=== PATIENT | male | born 1935 | race Caucasian/White ===

== ENCOUNTER 2017-03-04 05:31 | Inpatient (IN) | payer MEDICARE, OTHER ==
[2017-03-04] VITALS (45 sets, daily range): BP systolic 82–116; BP diastolic 40–59
[~2017-03-04] VITALS: Ht 170.2 cm; Wt 90.7 kg
--- NOTE | 2017-03-04 05:49 | NUR ---
81 Y/O MALE PLACED IN BED 1. R/O SEPSIS. PT HOT TO TPOUCH. RECTAL TEMP 103. HEART RATE 137. ALTERED MENTAL STAUS. RESPONDS TO PAIN FUL STIMULI. LETHARGIC. HYPERTENSIVE.
--- NOTE | 2017-03-04 05:52 | NUR ---
CODE SEPSIS PAGED.
[2017-03-04] MEDS ORDERED: ACETAMINOPHEN 650 MG/SUPP.RECT RC ONE ×2 (05:57→06:00)
[2017-03-04] MEDS ORDERED: IV NS 0.9% 1,000 ML BAG IV ONE ×4 (06:00→10:00)
--- NOTE | 2017-03-04 06:14 | NUR ---
PT IS ALERT AND ORIENTED FOR THE MOST PART. PT SEEN BY . GABRIEL PLACED IN PT. PT HAS HEMITURIA. PT HAS PROSTATE ISSUES, POSSIBLY PROSTATE CA. IVF CONTINUE TO RUN. RECTAL TYLENOL GIVEN. BLOOD DRAWN AND SENT.
--- NOTE | 2017-03-04 06:22 | NUR ---
PT TAKEN TO CT.
[2017-03-04 06:29] LABS: EOSINOPHILS % (AUTO) 0.4 % (0.0-6.0); HEMATOCRIT 28 % (39-51); LYMPHOCYTES # (AUTO) 0.7 /CMM (0.8-4.8); LYMPHOCYTES % (AUTO) 8.9 % (20.0-44.0); MEAN CORPUSCULAR HEMOGLOBIN 25 PG (26.0-33.0); MEAN CORPUSCULAR HGB CONC 32 g/dl (31.0-36.0); MEAN CORPUSCULAR VOLUME 78 fL (80-96); MONOCYTES % (AUTO) 0.2 % (2.0-12.0); NEUTROPHILS # (AUTO) 7.5 /CMM (1.8-8.9); NEUTROPHILS % (AUTO) 90.5 % (43.0-81.0); RDW COEFFICIENT OF VARIATION 23.2 (11.5-15.0); RED BLOOD CELL COUNT(AUTO) 3.59 MIL/uL (4.5-6.0); WHITE BLOOD COUNT (AUTO) 8.3 K/uL (4.3-11.0)
[2017-03-04] MEDS ORDERED: PIPERACILLIN /TAZOBACTAM 3.375 G in IV D5W 50 ML IV ONE (06:30)
[2017-03-04] MEDS ORDERED: VANCOMYCIN 1 GM in IV D5W 250 ML IV ONE ×2 (06:30→10:00)
--- NOTE | 2017-03-04 06:32 | NUR ---
PT BACK FROM CT.
[2017-03-04 06:36] LABS: CALCIUM, SERUM 6.4 mg/dL (8.5-10.1); CARBON DIOXIDE 17 mmol/L (21-32); CHLORIDE 95 mmol/L (98-107); CREATININE 1.4 mg/dL (0.6-1.3); GLUCOSE 83 mg/dL (74-106); SODIUM SERUM 130 mmol/L (136-145); UREA NITROGEN, BLOOD 51 mg/dL (7-18)
[2017-03-04] MEDS ORDERED: PIPERACILLIN /TAZOBACTAM 3.375 G VIAL IV ONE (06:36)
--- NOTE | 2017-03-04 06:43 | NUR ---
IV ANTIBIOTICS STARTED.
[2017-03-04 06:44] LABS: TROPONIN I < 0.017 ng/mL (0.00-0.056)
[2017-03-04 06:46] LABS: INR 1.6 (0.87-1.13); PLATELET COUNT (AUTO) 216 /CMM (150-450); PROTHROMBIN TIME 16.7 SECS (9.5-12.7)
--- NOTE | 2017-03-04 06:46 | NUR ---
BLOOD PRESSURE LOW. MD AWARE.
[2017-03-04 06:51] LABS: ALANINE AMINOTRANSFERASE 39 U/L (12-78); ALKALINE PHOSPHATASE 1069 U/L (46-116); ASPARTATE AMINOTRANSFERASE 234 U/L (15-37); B-TYPE NATRIURETIC PEPTIDE 1248 PG/ML (0-125); BILIRUBIN,DIRECT 0.9 mg/dL (0.0-0.2); BILIRUBIN,TOTAL 1.3 mg/dL (0.2-1.0); TOTAL PROTEIN, SERUM 6.4 g/dL (6.4-8.2)
[2017-03-04 06:52] LABS: ALBUMIN 1.4 g/dL (3.4-5.0)
[2017-03-04] MEDS ORDERED: DEXTROSE 50%-WATER 50 ML DISP.SYRIN ONE (06:52)
[2017-03-04] MEDS ORDERED: FUROSEMIDE 20 MG/2 ML VIAL ONE (06:52)
[2017-03-04] MEDS ORDERED: CALCIUM CHLORIDE 1,000 MG/10 ML DISP.SYRIN ONE (06:52)
[2017-03-04] MEDS ORDERED: VANCOMYCIN 1 GM VIAL ONE (06:52)
[2017-03-04] MEDS ORDERED: SODIUM BICARBONATE SYR 50 MEQ/50 ML DISP.SYRIN ONE (06:52)
[2017-03-04] MEDS ORDERED: SODIUM POLYSTYRENE SULFONATE 15 G/60 ML BOTTLE PO ONE (07:00)
[2017-03-04] MEDS ORDERED: FUROSEMIDE 40 MG/4 ML VIAL IV ONE (07:00)
[2017-03-04] MEDS ORDERED: SODIUM BICARBONATE SYR 50 MEQ/50 ML DISP.SYRIN IV ONE (07:00)
[2017-03-04] MEDS ORDERED: DEXTROSE 50%-WATER 50 ML DISP.SYRIN IV ONE (07:00)
[2017-03-04] MEDS ORDERED: CALCIUM CHLORIDE 1,000 MG/10 ML DISP.SYRIN IV ONE (07:00)
[2017-03-04] MEDS ORDERED: ALBUTEROL FS 2.5 MG/3 ML VIAL.NEB NEB ONE (07:00)
[2017-03-04] MEDS ORDERED: INSULIN REGULAR, HUMAN 100 UNIT/ML 10 ML VIAL IV ONE (07:00)
[2017-03-04 07:08] LABS: BAND % (MANUAL) 13 % (0.0-5.0); LYMPHOCYTES % (MANUAL) 9 % (16-48); METAMYELOCYTES % 2 % (0-0); MONOCYTES % (MANUAL) 1 % (0-11.0); NEUTROPHILS % (MANUAL) 75 (42-76)
--- NOTE | 2017-03-04 07:16 | NUR ---
CALLED LAB FOR DYE REEL OPERATOR
--- NOTE | 2017-03-04 07:17 | NUR ---
CT OF HEAD RESULTS INDICATE POSSIBLE BLEED, AWARE
[2017-03-04] MEDS ORDERED: ALBUTEROL FS 2.5 MG/3 ML VIAL.NEB ONE ×2 (07:25→07:26)
[2017-03-04] MEDS ORDERED: ALBUTEROL FS 2.5 MG/0.5 ML VIAL.NEB ONE (07:26)
[2017-03-04] MEDS ORDERED: SODIUM POLYSTYRENE SULFONATE 15 G/60 ML BOTTLE ONE (07:42)
[2017-03-04] MEDS ORDERED: oxyCODONE/APAP (5/325 MG) 1 UDTAB TABLET ONE (07:42)
--- NOTE | 2017-03-04 07:53 | NUR ---
DR. OROZCO (RADIOLOGY) SPEAKING TO DR. VILLATORO REGARDING CT RESULTS.
--- NOTE | 2017-03-04 07:57 | NUR ---
DR. VILLATORO SPEAKING TO DR. WADE REGARDING RESULTS.
[2017-03-04] MEDS ORDERED: oxyCODONE/APAP (5/325 MG) 1 UDTAB TABLET PO ONE (08:00)
[2017-03-04] MEDS ORDERED: FERR-58 PO (08:10)
[2017-03-04] MEDS ORDERED: ZOLP5TAB2 PO (08:10)
[2017-03-04] MEDS ORDERED: BISA10SU8 RC (08:10)
[2017-03-04] MEDS ORDERED: MULT-213 PO (08:10)
[2017-03-04] MEDS ORDERED: LIDO700A TP (08:10)
[2017-03-04] MEDS ORDERED: ALEN70TA45 PO (08:10)
[2017-03-04] MEDS ORDERED: ASCO500T9 PO (08:10)
[2017-03-04] MEDS ORDERED: NA P133E RC (08:10)
[2017-03-04] MEDS ORDERED: OXYC-128 PO (08:10)
[2017-03-04] MEDS ORDERED: BICA50TA2 PO (08:10)
[2017-03-04] MEDS ORDERED: MAGN400O6 PO (08:10)
[2017-03-04] MEDS ORDERED: GABA-532 PO (08:10)
[2017-03-04 08:12] LABS: APPEARANCE,URINE CLOUDY (CLEAR); BILIRUBIN,URINE 3+ (NEGATIVE); BLOOD, URINE 3+ Ery/uL (NEGATIVE); COLOR,URINE AMBER (YELLOW); KETONES,URINE 1+ (NEGATIVE); LEUKOCYTE ESTERASE ,URINE 2+ (NEGATIVE); NITRITE, URINE POSITIVE (NEGATIVE); PH,URINE 6.5 (5.0-8.0); PROTEIN,URINE 3+ mg/dl (NEGATIVE); UGLUCOSE TRACE mg/dL (NEGATIVE); UROBILINOGEN,URINE >=8.0 EU/dL (0.2)
--- NOTE | 2017-03-04 08:20 | NUR ---
MACHINE SEWER AT FOR BLOOD DRAW.
[2017-03-04 08:22] LABS: RBC,URINE TOO NUMEROUS TO COUN /HPF (0-2); SQUAMOUS EPITHELIAL CELL,UR Rare /HPF (None Seen)
[2017-03-04 08:23] LABS: BACTERIA,URINE Moderate /HPF (None Seen)
--- NOTE | 2017-03-04 08:40 | NUR ---
AZEEM GILL RN, CALLED FOR ICU BED AND PICC LINE NURSE
[2017-03-04] MEDS ORDERED: CT SWABBABLE VALVE TRANS SET 1 EA INFUS.SET MC ONE (08:50)
[2017-03-04] MEDS ORDERED: IOHEXOL-350 100 ML VIAL IV ONE (08:50)
[2017-03-04] MEDS ORDERED: IV NS 0.45% 500 ML IV ONE (08:51)
[2017-03-04] MEDS ORDERED: NOREPINEPHRINE 8 MG in IV D5W 500 ML IV ONE (09:00)
--- NOTE | 2017-03-04 09:55 | NUR ---
REPORT GIVEN TO SUNITHA STARK FOR ICU 257.
[2017-03-04] MEDS ORDERED: NOREPINEPHRINE 8 MG in IV D5W 500 ML IV PRN ×2 (10:00→19:00)
[2017-03-04] MEDS ORDERED: ACETAMINOPHEN 325 MG TABLET PO PRN (10:00)
[2017-03-04] MEDS ORDERED: ONDANSETRON HCL/PF 4 MG/2 ML VIAL IVP PRN (10:00)
--- NOTE | 2017-03-04 10:00 | NUR ---
SENSOR TECHNICIAN RECEIVED PATIENT FROM [facility] [place] ALERT AWAKE X 3 COMPLAINTS OF PAIN, PAIN MEDICATION WILL BE GIVEN STARTED IVF TO RUN FOR 100 ML/HR MONITORED CLOSELY WOUND CULTURE ORDERED KAYEXALTE GIVEN, SMALL BM NOTED CLOUDY, ROSE URINE OUTPUT NOTED Addendum: 03/04/17 at 1919 by JUAN JOSE SIFUENTES RN LEVOPHED STARTED AT 12NOON
[2017-03-04] MEDS ORDERED: SODIUM POLYSTYRENE SULFONATE 15 G/60 ML BOTTLE RC ONE (10:15)
[2017-03-04 11:39] LABS: ABG BASE EXCESS -4.9 mmol/L; ABG OXYGEN SATURATION 94.7 % (92.0-98.5); ABG PCO2 22.6 mmHg (35.0-45.0); ABG PO2 72.3 mmHg (75.0-100.0); AaDO2 50.4 mmHg; COHb 0.3 % (0.5-1.5); MetHb 0.6 % (0.0-1.5); O2Hb 93.8 % (94.0-97.0); SITE, ABG Right Brachial; VENT MODE, BG ROOM AIR
[2017-03-04] MEDS ORDERED: PIPERACILLIN /TAZOBACTAM 4.5 G in IV D5W 100 ML IV SCH (12:00)
[2017-03-04] MEDS: PANTOPRAZOLE 40 MG VIAL IV SCH (12:27)
[2017-03-04] MEDS: MORPHINE SULFATE INJ 2 MG/ML DISP.SYRIN IV PRN ×2 (12:33→23:51)
[2017-03-04] MEDS: IV NS 0.9% 1,000 ML IV PRN (12:41)
[2017-03-04] MEDS: PIPERACILLIN /TAZOBACTAM 3.375 G in IV D5W 50 ML IV SCH ×3 (12:59→23:50)
[2017-03-04] MEDS ORDERED: FEE PK DOSING 1 MIN EA MC ONE (14:11)
[2017-03-04 18:55] LABS: ALANINE AMINOTRANSFERASE 67 U/L (12-78); ALKALINE PHOSPHATASE 818 U/L (46-116); ASPARTATE AMINOTRANSFERASE 404 U/L (15-37); BILIRUBIN,DIRECT 0.9 mg/dL (0.0-0.2); BILIRUBIN,TOTAL 1.2 mg/dL (0.2-1.0); CALCIUM, SERUM 6.1 mg/dL (8.5-10.1); CARBON DIOXIDE 22 mmol/L (21-32); CHLORIDE 100 mmol/L (98-107); GLUCOSE 117 mg/dL (74-106); POTASSIUM 4.1 mmol/L (3.5-5.1); SODIUM SERUM 133 mmol/L (136-145); TOTAL PROTEIN, SERUM 5.1 g/dL (6.4-8.2); UREA NITROGEN, BLOOD 46 mg/dL (7-18)
[2017-03-04 19:00] LABS: ALBUMIN 1.1 g/dL (3.4-5.0)
[2017-03-04] MEDS: NOREPINEPHRINE 8 MG in IV D5W 500 ML IV PRN (19:38)
--- NOTE | 2017-03-04 20:00 | NUR ---
Received patient alert & oriented. VS stable.SR.NPO status.IVF infusing & Levophed drip @ 18 mcg/min for BP support and will titrate accordingly. Both iv's infusing via ALEXANDRO PICC line.Site intact.FC to gravity with cloudy sheila urine.Patient turned and repositioned offloading pressure points.Patient with pressure injury dressing C./D/I.Grimaces and moans when turn but refused pain medication at this time.Continue monitoring.
[2017-03-04] MEDS: VANCOMYCIN 500 MG in IV D5W 100 ML IV SCH (20:07)
--- NOTE | 2017-03-04 21:30 | NUR ---
Specimen for MRSA nares collected and sent to lab.
[2017-03-05] VITALS (90 sets, daily range): BP systolic 73–131; BP diastolic 31–89
[2017-03-05] MEDS: IV NS 0.9% 1,000 ML IV PRN ×2 (00:12→13:18)
--- NOTE | 2017-03-05 00:25 | NUR ---
At 2351 PRN Morpine administered for back pain with relief.Turned and repositioned.VS stable.
[2017-03-05] MEDS: NOREPINEPHRINE 8 MG in IV D5W 500 ML IV PRN (02:13)
--- NOTE | 2017-03-05 04:00 | NUR ---
Patient doze off and on awake at this time.VS stable.Bed bath done [place] linens changed. Oral care done.Right hip and mid back pressure injury dressing changed with minimal serosanguineous drainage.Turned and repositioned to comfort offloading pressure points. Patient moans only when arms and legs moved on turning.Refused pain medication. Continue monitoring.
[2017-03-05 04:31] LABS: HEMATOCRIT 25 % (39-51); HEMOGLOBIN 8.1 g/dL (13.5-17.5); MEAN CORPUSCULAR HEMOGLOBIN 26 PG (26.0-33.0); MEAN CORPUSCULAR HGB CONC 33 g/dl (31.0-36.0); MEAN CORPUSCULAR VOLUME 77 fL (80-96); PLATELET COUNT (AUTO) 178 /CMM (150-450); RDW COEFFICIENT OF VARIATION 23.8 (11.5-15.0); RED BLOOD CELL COUNT(AUTO) 3.18 MIL/uL (4.5-6.0)
[2017-03-05 04:36] LABS: ALANINE AMINOTRANSFERASE 68 U/L (12-78); ALKALINE PHOSPHATASE 786 U/L (46-116); ASPARTATE AMINOTRANSFERASE 506 U/L (15-37); BILIRUBIN,TOTAL 1.1 mg/dL (0.2-1.0); CARBON DIOXIDE 19 mmol/L (21-32); CHLORIDE 100 mmol/L (98-107); CREATININE 0.8 mg/dL (0.6-1.3); GLUCOSE 104 mg/dL (74-106); SODIUM SERUM 132 mmol/L (136-145); TOTAL PROTEIN, SERUM 5.2 g/dL (6.4-8.2); UREA NITROGEN, BLOOD 40 mg/dL (7-18)
[2017-03-05 04:53] LABS: BAND % (MANUAL) 13 % (0.0-5.0); EOSINOPHILS % (MANUAL) 1 % (0-4); LYMPHOCYTES % (MANUAL) 6 % (16-48); METAMYELOCYTES % 1 % (0-0); MONOCYTES % (MANUAL) 1 % (0-11.0); MYELOCYTES % 1 % (0-0); NEUTROPHILS % (MANUAL) 77 (42-76)
[2017-03-05 05:29] LABS: ALBUMIN 1.1 g/dL (3.4-5.0); CALCIUM, SERUM 5.9 mg/dL (8.5-10.1)
[2017-03-05] MEDS: PIPERACILLIN /TAZOBACTAM 3.375 G in IV D5W 50 ML IV SCH ×4 (06:01→23:38)
--- NOTE | 2017-03-05 06:20 | NUR ---
Patient resting appears comfortable.SR.VS stable.All due medications administered.Levophed drip down to 14 mcg/min.Turned and repositioned.AM labs resulted.Calcium 5.9 and Albumin 1.1 will endorsed to AM shift RN to inform MD this morning.
--- NOTE | 2017-03-05 07:30 | NUR ---
WALL INSULATION SPRAYER RECEIVED PATIENT AWAKE ON ROOM AIR SATURATING AT 98% WARM TO TOUCH PAIN NOTED ESPECIALLY WHEN MOVED MAINTAINED ON NPO, MONITORED CLOSELY MAINTAINED ON LEVOPHED TITRATED ACCORDINGLY WITH GABRIEL CATHETER DRAINING TO BAG, STILL ROSE IN APPEARANCE
[2017-03-05] MEDS: PANTOPRAZOLE 40 MG VIAL IV SCH (08:16)
[2017-03-05] MEDS: VANCOMYCIN 500 MG in IV D5W 100 ML IV SCH ×2 (09:17→20:38)
--- NOTE | 2017-03-05 09:53 | NUR ---
MUFFLE OPERATOR SEEN BY DR. VALENZUELA WITH NEW ORDERS MADE AND CARRIED OUT
[2017-03-05] MEDS ORDERED: Z GUARD REMEDY 2 OZ OINT TP PRN (10:30)
[2017-03-05] MEDS: NOREPINEPHRINE 16 MG in IV D5W 500 ML IV PRN (11:11)
[2017-03-05] MEDS: Z GUARD REMEDY 2 OZ OINT TP SCH (11:19)
[2017-03-05] MEDS: CADEXOMER IODINE 40 GM TUBE TP SCH ×2 (11:19→20:44)
[2017-03-05] MEDS: MORPHINE SULFATE INJ 2 MG/ML DISP.SYRIN IV PRN ×2 (11:31→23:39)
[2017-03-05 12:04] LABS: ABG BASE EXCESS -3.8 mmol/L; ABG PCO2 23.2 mmHg (35.0-45.0); ABG PH 7.514 (7.350-7.450); ABG PO2 71.1 mmHg (75.0-100.0); AaDO2 50.8 mmHg; COHb 0.5 % (0.5-1.5); MetHb 0.2 % (0.0-1.5); O2Hb 94.3 % (94.0-97.0); SITE, ABG Right Radial
--- NOTE | 2017-03-05 12:11 | NUR ---
CLAIMS PROCESSOR PATIENT REFUSED TO HAVE CT OF HIS RIGHT HIP
--- NOTE | 2017-03-05 18:38 | NUR ---
SOFTWARE ENGINEERING SUPERVISOR PATIENT REMAINS NPO, AWAITING VANCOMYCIN TROUGH RESULT BEFORE GIVENING VANCOMYCIN IV
--- NOTE | 2017-03-05 20:00 | NUR ---
ALTO SINGER NOTES RECEIVED PT IN BED, AWAKE. A/O X3. ON ROOM AIR, FINA WELL. TELE READS ST AT 102 BPM. NPO AT THIS TIME. GABRIEL CATH IN PLACE, DRAINING WELL TO CLOUDY ROSE URINE. ALEXANDRO PICC IN PLACE, RUNNING LEVOPHED AT 16 MCG/MIN AND NS AT 100 ML/HR. IV SITES AT RAC 18G AND LAC 18G, PATENT, CLEAN AND DRY. PT DENIES PAIN AT THIS TIME. HOB ELEVATED, SIDE RAILS X3. ON KCI MATTRESS. LEMON GLYCERIN SWABS PROVIDED TO WET PT'S DRY MOUTH. TURNED AND REPOSITIONED.
[2017-03-06] VITALS (69 sets, daily range): BP systolic 89–124; BP diastolic 45–102
[2017-03-06] MEDS: IV NS 0.9% 1,000 ML IV PRN ×2 (01:30→14:16)
[2017-03-06] MEDS: MORPHINE SULFATE INJ 2 MG/ML DISP.SYRIN IV PRN ×4 (04:32→22:33)
[2017-03-06] MEDS: NOREPINEPHRINE 16 MG in IV D5W 500 ML IV PRN (04:37)
[2017-03-06 04:46] LABS: CARBON DIOXIDE 20 mmol/L (21-32); CHLORIDE 104 mmol/L (98-107); CREATININE 0.6 mg/dL (0.6-1.3); GLUCOSE 79 mg/dL (74-106); SODIUM SERUM 136 mmol/L (136-145); UREA NITROGEN, BLOOD 22 mg/dL (7-18)
[2017-03-06 04:50] LABS: CALCIUM, SERUM 5.5 mg/dL (8.5-10.1); POTASSIUM 2.5 mmol/L (3.5-5.1)
[2017-03-06 05:20] LABS: HEMATOCRIT 22 % (39-51); HEMOGLOBIN 7.4 g/dL (13.5-17.5); MEAN CORPUSCULAR HEMOGLOBIN 25 PG (26.0-33.0); MEAN CORPUSCULAR HGB CONC 33 g/dl (31.0-36.0); MEAN CORPUSCULAR VOLUME 77 fL (80-96); PLATELET COUNT (AUTO) 157 /CMM (150-450); RDW COEFFICIENT OF VARIATION 24.2 (11.5-15.0); RED BLOOD CELL COUNT(AUTO) 2.92 MIL/uL (4.5-6.0); WHITE BLOOD COUNT (AUTO) 5.8 K/uL (4.3-11.0)
[2017-03-06 05:39] LABS: BAND % (MANUAL) 14 % (0.0-5.0); EOSINOPHILS % (MANUAL) 2 % (0-4); LYMPHOCYTES % (MANUAL) 9 % (16-48); MONOCYTES % (MANUAL) 3 % (0-11.0); NEUTROPHILS % (MANUAL) 72 (42-76)
[2017-03-06] MEDS: PIPERACILLIN /TAZOBACTAM 3.375 G in IV D5W 50 ML IV SCH ×3 (06:13→18:14)
[2017-03-06] MEDS: POTASSIUM CL. PREMIX PERIPHER. 50 ML IV SCH ×10 (07:28→17:49)
[2017-03-06] MEDS: VANCOMYCIN 500 MG in IV D5W 100 ML IV SCH ×2 (07:36→19:59)
--- NOTE | 2017-03-06 07:43 | NUR ---
ICU NOTE PT RECVD AOX3 IN BED EASILY AROUSABLE. ON 10MCG OF LEVOPHED, NS @ 100, AND POSTASSIUM REPLACEMENT STARTED. PM MD ORDERED 40 MEQ AND TOLD RN TO HAVE DAY SHIFT FOLLOW UP IF HE NEEDS MORE REPLACEMENT. CALCIUM WAS ALSO REPORTED BY PM RN TO MD AND HE STATES THAT CALCIUM IS FALSE LOW DUE TO LOW ALBUMIN. PT STILL NPO WILL ASK MD TODAY IF WE CAN START DIET VS KEEP NPO. CT RIGHT HIP ORDERED, WHICH THE PATIENT REFUSED YESTERDAY, I WILL ENCOURAGE HIM TO COMPLY AND PLAN TO PREMEDICATE WITH PAIN MEDICATIONS IF HE WILL ALLOW FOR IT.
[2017-03-06] MEDS: PANTOPRAZOLE 40 MG VIAL IV SCH (08:03)
[2017-03-06] MEDS: CADEXOMER IODINE 40 GM TUBE TP SCH (08:03)
[2017-03-06] MEDS: Z GUARD REMEDY 2 OZ OINT TP SCH (08:03)
--- NOTE | 2017-03-06 09:47 | NUR ---
DR. WADE ON THE UNIT, TO TALK TO THE PATIENT, HE ORDERS 60 MEQ MORE OF POTASSIUM OKAY TO DO IV, INSTEAD OF PO BECAUSE PT WILL NEED TO BE NPO FOR A CT SCAN TODAY. WILL INPUT ORDERS.
[2017-03-06] MEDS ORDERED: POTASSIUM CHLORIDE 20 MEQ TAB.PRT.SR PO ONE (10:00)
--- NOTE | 2017-03-06 11:10 | NUR ---
PT TAKEN DOWN FOR CT. FAIR TOLERATION OF PROCEDURE DUE TO PAIN, BUT PT ACTUALLY DOES NOT WANT PRN MORPHINE, HE STATES HE HAS HAD ENOUGH OF IT SO FAR. SPOKE WITH THE PT'S SISTER THIS MORNING WHO STATES THAT HE PT HAS A BIASED AGAINST PAIN MEDICATIONS HE CALLS THEM "MIND ALTERING" DRUGS AND TRIES TO LIMIT THEM MUCH POSSIBLE.
[2017-03-06] MEDS ORDERED: IOHEXOL-300 100 ML VIAL IV ONE (11:39)
--- NOTE | 2017-03-06 22:10 | NUR ---
ICU/BENCH SCIENTIST FAMILY MEMBERS AT BEDSIDE, SISTERS FROM OUT OF TOWN. PT APPEARED TO RESPOND TO THE FAMILY MEMBERS WELL. THE VISIT WAS ABOUT 30 MINUTES THEN SAID THEY WOULD COME BACH TOMORROW.
--- NOTE | 2017-03-06 22:45 | NUR ---
ICU/ATTENDING PATHOLOGIST PT APPEARED TO BE IN PAIN BY YELLING OUT WITH MOVED, NOTIFIED CHARGE NURSE ABOUT THIS WITH INCREASED HEART RATE TO100'S MORPHINE 2 MG WAS GIVEN IVP. PT DOES NOT TO IN ANY ACUTE RESPIRATORY DISTRESS WILL CONTINUE TO MONITOR THIS PT AND PAIN LEVEL.
[2017-03-07] VITALS (55 sets, daily range): BP systolic 63–115; BP diastolic 34–60
[2017-03-07] MEDS: PIPERACILLIN /TAZOBACTAM 3.375 G in IV D5W 50 ML IV SCH ×3 (00:10→11:28)
[2017-03-07] MEDS: MORPHINE SULFATE INJ 2 MG/ML DISP.SYRIN IV PRN ×5 (02:47→17:29)
[2017-03-07] MEDS: IV NS 0.9% 1,000 ML IV PRN ×2 (02:47→11:28)
--- NOTE | 2017-03-07 03:00 | NUR ---
ICU/INFECTION PREVENTION COORDINATOR PT APPEARED TO BE IN PAIN BY YELLING OUT WITH MOVED, NOTIFIED CHARGE NURSE ABOUT THIS WITH INCREASED HEART RATE TO100'S MORPHINE 2 MG WAS GIVEN IVP. PT DOES NOT TO IN ANY ACUTE RESPIRATORY DISTRESS WILL CONTINUE TO MONITOR THIS PT AND PAIN LEVEL.
--- NOTE | 2017-03-07 04:55 | NUR ---
ICU/ATLASSIAN ADMINISTRATOR PT GIVEN AM CARE, ALONG WITH ORAL CARE. PT TOLERATED THIS WELL. THEN PT WAS TURNED AND REPOSITIONED FOR COMFORT AND CARE. PT NOW APPEARS TO BE RESTING COMFORTABLE.
[2017-03-07 05:24] LABS: CARBON DIOXIDE 18 mmol/L (21-32); CHLORIDE 109 mmol/L (98-107); CREATININE 0.5 mg/dL (0.6-1.3); GLUCOSE 89 mg/dL (74-106); POTASSIUM 3.5 mmol/L (3.5-5.1); SODIUM SERUM 139 mmol/L (136-145); UREA NITROGEN, BLOOD 15 mg/dL (7-18)
[2017-03-07 05:44] LABS: CALCIUM, SERUM 5.6 mg/dL (8.5-10.1)
--- NOTE | 2017-03-07 06:30 | NUR ---
ICU/MEAT CLERK LEVO BAG WAS LOW, NOTICED CHARGE NURSE ABOUT THIS. BLOOD PRESSURE CONTINUES TO BE IN THE 90'S. PT WAS TURNED AND REPOSITIONED FOR COMFORT AND CARE
[2017-03-07] MEDS: NOREPINEPHRINE 16 MG in IV D5W 500 ML IV PRN (06:38)
--- NOTE | 2017-03-07 07:05 | NUR ---
RN INITIAL NOTES RECEIVED PT AWAKE, A/OX2. ON 02 AT 2LPM VIA NC. NO RESPIRATORY DISTRESS NOTED. NO SOB NOTED. NO SIGNS OF PAIN NOTED. HOB ELEVATED. ALEXANDRO PICC IN PLACE. IVF INFUSING. FC IN PLACE. NO HEMATURIA NOTED. BLE ELEVATED. WILL MONITOR.
[2017-03-07] MEDS ORDERED: ERGOCALCIFEROL (VITAMIN D 2) 50,000 UNIT CAPSULE PO SCH (07:30)
[2017-03-07] MEDS: PANTOPRAZOLE 40 MG VIAL IV SCH (08:27)
[2017-03-07] MEDS: VANCOMYCIN 500 MG in IV D5W 100 ML IV SCH (08:27)
[2017-03-07] MEDS: Z GUARD REMEDY 2 OZ OINT TP SCH (08:27)
--- NOTE | 2017-03-07 10:30 | NUR ---
RN NOTES SEEN AND EXAMINED BY DR. WADE. AWARE OF CURRENT LAB VALUES: WBC 5.8, HGB 7.4, HCT 22. NO SIGNS OF BLEEDING NOTED. BUN 15, CREA 0.5, CALCIUM 5.6, ALBUMIN 1.1. ALSO AWARE OF RIGHT HIP CT RESULT. PT AWAKE, A/OX2. ON IVF. WITH POOR PO INTAKE. ON LEVO AT 9MCG/MIN. SBP >90 MMHG. AWAITING FOR ORDER/S. WILL MONITOR.
--- NOTE | 2017-03-07 11:00 | NUR ---
PT CONFUSED WITH METASTATIC CANCER SEEN ON HEAD CT. PT NOT COMPETENT PER DR WADE TO MAKE HIS OWN DECISIONS. BOTH SISTERS AT BEDSIDE. D/W PT'S SISTERS UMER AND JASON WHO EACH STATE THAT THEY ARE THE ONLY FAMILY. SISTER UMER, BOTH AGREE, IS THE DPOA FOR HEALTH CARE ALTHOUGH THERE HAS NEVER BEEN A FORMAL DOCUMENT EXECUTED. ALL CT SCANS AND X/R'S R/VD WITH SISTERS WHO HAVE BEEN AWARE OF DX AND PROGNOSIS "FOR A YEAR". BOTH ASK FOR COMFORT CARE AND TO STOP ALL AGGRESSIVE RX. D/W DR WADE WHO WILL COME IN PERSON TO SPEAK WITH FAMILY. CODE STATUS CHANGED TO COMFORT
[2017-03-07] MEDS ORDERED: HYDROMORPHONE 1 MG/1 ML DISP.SYRIN IV PRN ×2 (11:30→12:00)
--- NOTE | 2017-03-07 11:30 | NUR ---
RN NOTES DR. WADE INSIDE THE ROOM WITH TWO SISTERS. DISCUSSED PLAN OF CARE CONSIDERING HOSPICE. PT IS NOW FOR COMFORT MEASURES ONLY. SISTERS VERBALIZED UNDERSTANDING. MD ORDERED TO STOP ALL MEDS. WILL CONTINUE TO MONITOR.
[2017-03-07] MEDS: LORAZEPAM INJ 2 MG/ML VIAL IV PRN ×4 (12:18→18:22)
[2017-03-07] MEDS ORDERED: MORPHINE SULFATE INJ 2 MG/ML DISP.SYRIN IV PRN (13:00)
--- NOTE | 2017-03-07 18:35 | NUR ---
RN CLOSING NOTES PT ON COMFORT CARE. ON 02 AT 2LPM VIA NC. HOB ELEVATED. NO SIGNS OF PAIN NOTED. PICC LINE IN PLACE. FC IN PLACE. KEPT COMFORTABLE. KEPT CLEAN AND DRY. AWAITING FOR ROOM AVAILABILITY TO BE DOWNGRADED TO MED-SURG. WILL ENDORSE.
--- NOTE | 2017-03-07 21:00 | NUR ---
COAT CHECK ATTENDANT - REC'D PT. OBTUNDED, DOES NOT RESPOND TO VERBAL COMMANDS, NAILBED STIMULUS,NOR DEEP TACTILE/PLANTAR STIMULUS. AFEBRILE. GABRIEL CATH W/LOW UOP. ALL PULSES PALPABLE X 4 EXT. CARLOS RAYA WAS ABLE TO TAKE [place] RING OFF OF LEFT HAND & GAVE IT TO HIS SISTER. HEART MONITOR SHOWS ST/120'S & SBP'S IN THE 60-70'S. PT. IS ON O2/2L/NC. PT. IS NOW COMFORT MEASURES ONLY. PT'S 2 SISTERS ARE AT BS. THEY DISCUSSED THAT WHEN PT. IS , THEY ALREADY MADE ARRANGEMENTS FOR THE [employer] TO PICK HIM UP.
[2017-03-08] VITALS: BP 72/39
[2017-03-08 01:00] VITALS: BP 75/40
[2017-03-08 02:00] VITALS: BP 74/38
[2017-03-08 03:00] VITALS: BP 72/38
[2017-03-08 04:00] VITALS: BP 74/37
[2017-03-08] MEDS: MORPHINE SULFATE INJ 2 MG/ML DISP.SYRIN IV PRN ×3 (04:26→20:05)
[2017-03-08 05:00] VITALS: BP 74/37
--- NOTE | 2017-03-08 05:00 | NUR ---
HRIS COORDINATOR - PT. WAS TRANSFERRED TO #107 W/ACLS PROTOCOL. PT. WAS ADMINISTERED MORPHINE SULFATE 2MG/SLOW IVP AT 04:55 FOR PAIN CONTROL. PT'S RT. HIP WAS PACKED/DRSG CHANGE BEFORE TX. SBP'S REMAIN IN THE 70'S, HR/ST/LOW 100'S TO 120'S. AFEBRILE. TELEPHONE REPORT GIVEN TO BOUBACAR STARK. NO CHANGES TO PREVIOUS ASSESSMENTS. PT'S SISTER CHICO WILL BE PHONED AT 6AM TO COMMUNICATE TRANSFER TO MED SURG. CONT. POC.
--- NOTE | 2017-03-08 05:13 | NUR ---
GALILEA/MS-RN NOTES PATIENT RECEIVED ON A GURNEY ACCOMPANIED BY 2 STAFF,RN, FROM ICU, NOT ALERT, BUT OBTUNDED,, HAVING SHALLOW BREATHING, EYES CLOSED AND CAN BE AWAKEN BY DEEP STIMULUS, SKIN WARM AND NOT MOIST. NOTED RIGHT HAND SWOLLEN/DISCOLORED. REQUIRE COMFORT MEASURES PER FAMILY. ON 2L OXYGEN VIA NC, PALPABLE PULSE ON ALL EXTREMITIES. ON GABRIEL WITH URINE DRAINING YELLOW COLORE. REQUIRE WOUND CARE ON LEFT HIP WITH SEROUS DRAINAGE REQUIRE IODOFORM OACKING FOR DRAINAGE. RIGHT PICC LINE DOUBLE LUMEN, PATENCY CHECK. ON NPO DIET, ON MORPHINE AND ATIVAN MED FOR PAIN AND COMFORT CARE. WILL CONTACT SISTER PER ICU NURSE FOR TRANSFER AND PER SISTER [employer] MADE AWARE.WILL CONTINUE TO MONITOR.
--- NOTE | 2017-03-08 07:55 | NUR ---
MS RN NOTE PT RECEIVED COMFORTABLY SLEEPING ON BED. ON NASAL CANNULA 2L TOLERATING WELL. NO SIGNS OF DISTRESS. RIGHT UPPER ARM PICC LINE RUNNING WELL. SIDE RAILS UP. CALL LIGHT WITHIN REACH. WILL PROVIDE COMFORT MEASURES TO THE PT.
[2017-03-08] MEDS: Z GUARD REMEDY 2 OZ OINT TP SCH (10:33)
--- NOTE | 2017-03-08 13:09 | NUR ---
MS RN NOTE PROVIDED COMFORT MEASURES GIVEN MORPHINE FOR PAIN.
--- NOTE | 2017-03-08 18:47 | NUR ---
MS RN NOTES PROVIDED COMFORT MEASURES TO THE PT. BED BATH WAS DONE. WOUND CARE DONE. WILL ENDORSED TO THE PM NURSE
--- NOTE | 2017-03-08 19:30 | NUR ---
RN NOTES, RECEIVED PATIENT IN BED, WITH EYES OPEN UNABLE TO VERBALIZED NEEDS OR CONCERNS, PATIENT IN COMFORT MEASURES ONLY AND PAIN MANAGEMENT, SISTER AT BEDSIDE, NOTED PATIENT WITH LABORED BREATHING. WILL ADMINISTER MEDICATIONS ORDERED.
[2017-03-09] MEDS: MORPHINE SULFATE INJ 2 MG/ML DISP.SYRIN IV PRN ×7 (00:29→20:00)
--- NOTE | 2017-03-09 06:30 | NUR ---
RN NOTES, PATIENT IN BED, WITH EYES OPEN, CONTINUE WITH LABORED BREATHING, SISTER AT BEDSIDE, NO CHANGE IN VS SINCE LAST NIGHT, CONTINUE WITH BP 65/54, HR 90, RR 24, 97.6, O2 SAT 94%, WILL ENDORSE CARE TO NEXT SHIFT.
[2017-03-09] MEDS: Z GUARD REMEDY 2 OZ OINT TP SCH (10:36)
--- NOTE | 2017-03-09 16:24 | NUR ---
Rn Notes NOTED PT WITH LABORED BREATHING MORPHINE GIVEN ORDERED. SISTER AT BEDSIDE REQUESTED TO NOT TAKE PHOTOS OF WOUNDS ANYMORE. DONE REQUESTED.
--- NOTE | 2017-03-09 20:10 | NUR ---
RN NOTES, PATIENT DISCHARGE AT THIS TIME, PATIENT IS GOING TO NURSING FACILITY [facility] ACCOMPANIED OF 2 DOPE MAINTENANCE WORKER [facility], SISTER HERE AT THIS TIME TOO. PATIENT CONTINUE WITH BP 48/34, RR 28, 02 94@ AT 2LMP VIA NC, MORPHINE ADMINISTERED BEFORE DISCHARGE.
== END 2017-03-09 21:19 | disposition hospice, home (50) | DRG 871 ==
LOC: ER 05:33 → ICU 09:52 → MEDSG1 03-08 04:54
PROVIDERS: ADMIT Internal Medicine; ATTEND Internal Medicine
PROC: 02HV33Z Insertion of Infusion Device into Superior Vena Cava, Percutaneous Approach (ICD-10-PCS; principal; 2017-03-04)
PROC: B548ZZA Ultrasonography of Superior Vena Cava, Guidance (ICD-10-PCS; 2017-03-04)
DX: A41.9 Sepsis, unspecified organism (principal); N17.0 Acute kidney failure with tubular necrosis; R65.21 Severe sepsis with septic shock; G93.41 Metabolic encephalopathy; L89.139 Pressure ulcer of right lower back, unspecified stage; E87.3 Alkalosis; I62.00 Nontraumatic subdural hemorrhage, unspecified; C78.01 Secondary malignant neoplasm of right lung; C78.02 Secondary malignant neoplasm of left lung; R64 Cachexia; C79.51 Secondary malignant neoplasm of bone; N39.0 Urinary tract infection, site not specified; T81.30XA Disruption of wound, unspecified, initial encounter; T84.020A Dislocation of internal right hip prosthesis, initial encounter; C61 Malignant neoplasm of prostate; D63.8 Anemia in other chronic diseases classified elsewhere; K21.9 Gastro-esophageal reflux disease without esophagitis; Z51.5 Encounter for palliative care; Z79.899 Other long term (current) drug therapy; R31.0 Gross hematuria; E87.5 Hyperkalemia; L98.8 Other specified disorders of the skin and subcutaneous tissue; S71.101A Unspecified open wound, right thigh, initial encounter; X58.XXXA Exposure to other specified factors, initial encounter; Y93.9 Activity, unspecified; Y92.129 Unspecified place in nursing home as the place of occurrence of the external cause; R74.0 Nonspecific elevation of levels of transaminase and lactic acid dehydrogenase [LDH]; Z68.31 Body mass index [BMI] 31.0-31.9, adult; Y83.8 Other surgical procedures as the cause of abnormal reaction of the patient, or of later complication, without mention of misadventure at the time of the procedure; B95.62 Methicillin resistant Staphylococcus aureus infection as the cause of diseases classified elsewhere; D50.9 Iron deficiency anemia, unspecified
CPT/HCPCS: 36415; 36569; 36600; 70450-TC; 71010-TC; 73701-TC; 80048-TC; 80053-TC; 80076-TC; 80202-TC; 81000-TC; 83605-TC; 83880; 84134-TC; 84484-TC; 85025-TC; 85730-TC; 87040-TC; 87070-TC; 87081-TC; 87086-TC; A4606; A6253; A6402; A6403; C1751; C9113; J1940; J2060; J2270; J2543; J3370; J3480; J3490; J7030; J7060; Q9967; Z7610